=== PATIENT | male | born 2000 | race Caucasian/White ===

== ENCOUNTER 2019-09-20 21:44 | Emergency (ER) | payer OTHER ==
[2019-09-20] MEDS ORDERED: ALBUTEROL SULFATE 0.083% NEB 2.5 MG/3 ML AMPUL NEB ONE ×2 (21:48→22:23)
[2019-09-20] MEDS ORDERED: FAMOTIDINE INJ/PF 20 MG/2 ML SDV IV ONE ×2 (21:52→22:24)
[2019-09-20] MEDS ORDERED: METHYLPREDNISOLONE INJ 125 MG/2 ML SDV ONE (21:55)
[2019-09-20] MEDS ORDERED: METHYLPREDNISOLONE INJ 125 MG/2 ML SDV IV ONE (22:21)
--- NOTE | 2019-09-20 22:58 | ER Document Report ---
Entered by JAVID ARANGO SCRIBE 09/20/19 2820 Acting as scribe for:MARLEY COYNE IV, MD ED Allergic Reaction - General Chief Complaint: Allergic Reaction Stated Complaint: ALLERGIC REACTION Primary Care Provider: ODIN HUFF MD [Primary Care Provider] - Follow up as needed Mode of Arrival: Medic Information source: Patient Notes: This 19 year old male brought in by EMS presents to the ED today with complaints of an allergic reaction that began prior to arrival per EMS. EMS states that the patient was visiting a relative at [facility] when the reaction occurred. EMS reports that upon arrival, the patient was on the floor with urticaria over his face, throat, chest, arms, and legs. EMS also reports that the patient's eyes were swollen almost shut and that his throat was swollen. Patient was administered 2 doses of epi, 15 mg of benadryl, and 50 mg of albuterol IV en route per EMS. EMS states that the patient was initially 88% on room air so he was placed on 02 en route. 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 - Related Data Allergies/Adverse Reactions: Ulysses nut Allergy (Verified 09/20/19 22:01) Past Medical History - General Information source: Patient - Social History Smoking Status: Unknown if Ever Smoked Cigarette use (# per day): No Chew tobacco use (# tins/day): No Smoking Education Provided: No Frequency of alcohol use: None Drug Abuse: None Family History: Reviewed & Not Pertinent Patient has suicidal ideation: No Patient has homicidal ideation: No Review of Systems - Review of Systems Constitutional: No symptoms reported EENT: See HPI, Throat swelling, Other - Eye swelling Cardiovascular: No symptoms reported Respiratory: No symptoms reported Gastrointestinal: See HPI. denies: Nausea Genitourinary: No symptoms reported Male Genitourinary: No symptoms reported Musculoskeletal: No symptoms reported Skin: See HPI, Other - Urticaria on face, throat, chest, UE, and LE Hematologic/Lymphatic: No symptoms reported Neurological/Psychological: No symptoms reported Physical Exam - Vital signs Vitals: Resp Pulse Ox 28 H 94 09/20/19 21:51 09/20/19 21:51 - General General appearance: Alert, Other - Hoarse voice - HEENT Head: Normocephalic, Atraumatic Eyes: Other - Bilateral upper and lower eyelid swelling Pupils: PERRL Mouth/Lips: Other - Mild swelling of the lips - Respiratory Respiratory status: Respiratory distress - non rebreather mask Chest status: Nontender Breath sounds: Wheezing - Inspiratory wheezing initially. No: Stridor Chest palpation: Normal - Cardiovascular Rhythm: Regular Heart sounds: Normal auscultation Murmur: No - Abdominal Inspection: Normal Distension: No distension Bowel sounds: Normal Tenderness: Nontender Organomegaly: No organomegaly - Back Back: Normal, Nontender - Extremities General upper extremity: Other - Urticarial rash General lower extremity: Other - Urticarial rash - Neurological Neuro grossly intact: Yes - Psychological Associated symptoms: Normal affect, Normal mood - Skin Skin Temperature: Warm Skin Moisture: Dry Skin Color: Erythema Notes: Diffuse urticarial rash of the face, neck, chest, arms and down to inner thighs. Course - Re-evaluation Re-evalutation: 09/21/19 00:02 Patient is sitting up in bed, O2 sats are 98% on room air. Patient denies any breathing difficulty. Patient appears markedly improved, his skin rash is completely resolved as well as his hives. Patient is speaking in full sentences with a clear voice. Lungs are clear to auscultation. All questions were answered prior to discharge. Patient was instructed that he would be given prescriptions for prednisone and EpiPen's. Patient was instructed that it is imperative that he always carries an EpiPen on his person. This MD asked patient had everything explained about his ED visit in a manner they understood he answered in the affirmative. - Vital Signs Vital signs: Temp Pulse Resp BP Pulse Ox 22 H 121/78 98 09/20/19 22:31 09/20/19 22:31 09/20/19 22:31 Discharge - Discharge Clinical Impression: Acute allergic reaction Condition: Good Disposition: HOME, SELF-CARE Additional Instructions: Return to the Emergency Department without delay if any worse. HOME CARE INSTRUCTIONS & INFORMATION: Thank you for choosing us for your medical needs. We hope you're satisfied with the care you received. After you leave, you must properly care for your problem and, at the same time, observe its progress. Any condition can change. Some illnesses can change rapidly over hours or days. If your condition worsens, return to the Emergency Department or see your physician promptly. ABOUT YOUR X-RAYS AND EKG'S: If you had an EKG or X-rays taken, they have been read by the Emergency Physician. The X-rays and EKG's will also be read by a Radiologist or Police Lieutenant within 24 hours. If discrepancies are noted, you will be notified by telephone. Please be certain the ED has a correct telephone number & address where you can be reached. Also, realize that some fractures or abnormalities do not show up on initial X-rays. If your symptoms continue, see your physician. ABOUT YOUR LABORATORY TEST: If you had laboratory tests, the results have been reviewed by the Emergency Physician. Some test results (for example cultures) may not be available for several days. You will be contacted if any test result shows you need additional treatment. Please be certain the ED has a correct telephone number and address where you can be reached. ABOUT YOUR MEDICATIONS: You will receive instructions on how to take your medicine on the prescription label you receive. Additional information may be provided by the Pharmacy. If you have questions afterwards, call the ED for clarification or further instructions. Some prescribed medications may cause drowsiness. Do not perform tasks such as driving a car or operating machinery without consulting your Pharmacist. If you feel you need a refill of pain medication, your condition will need re-evaluation. Please do not call for a refill of any medication. ABOUT YOUR SIGNATURE: Signature of this document acknowledges to followin. Understanding that you received emergency treatment and that you may be released before al medical problems are known or treated. Please be certain the ED has a correct phone number & address where you can be reached. 2. Acknowledgement that you will arrange for follow-up care as recommended. 3. Authorization for the Emergency Physician to provide information to your follow-up Physician in order to maximize your care. AT ANY TIME, IF YOUR SYMPTOMS CHANGE SIGNIFICANTLY OR WORSEN OR YOU DEVELOP NEW SYMPTOMS, RETURN TO THE EMERGENCY DEPARTMENT IMMEDIATELY FOR RE-EVALUATION. OUR GOAL IS TO PROVIDE EXCELLENT MEDICAL CARE! WE HOPE THAT WE HAVE MET YOUR EXPECTATIONS DURING YOUR EMERGENCY DEPARTMENT VISIT AND THAT YOU FEEL YOU HAVE RECEIVED EXCELLENT CARE! Acute Allergic Reaction Your symptoms are due to an allergic reaction. Allergy can cause hives, swelling of the hands, feet, and face, hoarseness, and difficulty swallowing or breathing. It may be due to exposure to medication, animal dander, foods, infection, or insect bites. Medication is a common cause, even when prior use of this same medication caused no problems. Acute treatment may include adrenalin and antihistamines. Usually, the specific allergic agent can't be identified unless repeated episodes occur. Home treatment includes the following: (1) Stop any suspicious medications. This will be discussed with you. (2) Oral antihistamines for the next four to five days. Example, diphenhydramine (Benadryl) every four hours. (3) You may also use cimetidine (Tagamet), ranitidine (Zantac), or famotidine (Pepcid) every four hours if diphenhydramine is not controlling itching and hives. (4) Avoid aspirin until the hives completely disappear. (5) Avoid hot bahs or showers until the hives are completely gone. Call the doctor if faintness, difficulty swallowing, tightness in the chest, or wheezing occurs. Prescriptions: Prednisone [Deltasone 20 mg Tablet] 3 tab PO DAILY 4 Days #12 tablet Epinephrine [Epipen Jr 0.15 mg/0.3 mL AutoInject] 1 ea IM ASDIR PRN #1 autoinjector PRN Reason: Referrals: ODIN HUFF MD [Primary Care Provider] - Follow up as needed I personally performed the services described in the documentation, reviewed and edited the documentation which was dictated to the scribe in my presence, and it accurately records my words and actions.
[2019-09-21 00:26] VITALS: BP 102/57
== END 2019-09-21 00:56 | disposition home or self-care (01) ==
LOC: ER 21:44
DX: T78.40XA Allergy, unspecified, initial encounter (principal); R22.1 Localized swelling, mass and lump, neck; R22.0 Localized swelling, mass and lump, head; L50.9 Urticaria, unspecified
CPT/HCPCS: 94640; 99285; 96374; 96375; J2930; S0028